=== PATIENT | female | born 1945 | race Caucasian/White ===

== ENCOUNTER 2024-04-12 14:12 | Outpatient (CLI) | payer MEDICARE | END 2024-04-12 14:13 | disposition home or self-care (01) | LOC: BICMAMMO 14:12 | PROVIDERS: ATTEND Nurse Practitioner Family | DX: R92.8 Other abnormal and inconclusive findings on diagnostic imaging of breast (principal); N63.10 Unspecified lump in the right breast, unspecified quadrant | CPT/HCPCS: 77065; G0279 ==

== ENCOUNTER 2024-09-27 13:06 | Outpatient (CLI) | payer MEDICARE | END 2024-09-27 13:07 | disposition home or self-care (01) | LOC: BICMAMMO 13:06 | PROVIDERS: ATTEND Nurse Practitioner Family | DX: R92.8 Other abnormal and inconclusive findings on diagnostic imaging of breast (principal) | CPT/HCPCS: 77066; G0279 ==